=== PATIENT | female | born 1970 | race African-American/Black ===

== ENCOUNTER 2020-10-18 05:42 | Day surgery (SDC) | payer OTHER, SELFPAY ==
[~2020-10-18] VITALS: Ht 165.1 cm; Wt 56.7 kg
[2020-10-18] MEDS ORDERED: diphenhydrAMINE 50 MG/ML VIAL ONE (07:37)
[2020-10-18] MEDS ORDERED: fentaNYL citrate 0.05 MG/ML VIAL ONE (07:37)
[2020-10-18] MEDS ORDERED: MIDAZOLAM 5 MG/5 ML VIAL ONE (07:38)
[2020-10-18] MEDS: LIDOCAINE 2% 100 MG/5 ML UJET TP ONE ×2 (07:38→07:46)
[2020-10-18] MEDS ORDERED: fentaNYL citrate 0.05 MG/ML VIAL IVP ONE (14:10)
[2020-10-18] MEDS ORDERED: MIDAZOLAM 2 MG/2 ML VIAL IVP ONE (14:10)
[2020-10-18] MEDS ORDERED: diphenhydrAMINE 50 MG/ML VIAL IVP ONE (14:20)
== END 2020-10-18 08:40 | disposition home or self-care (01) ==
LOC: MDS 05:42 → MMU 06:21 → MDS 08:40
PROVIDERS: ATTEND Internal Medicine Gastroenterology
DX: K62.5 Hemorrhage of anus and rectum (principal); K63.5 Polyp of colon; K57.30 Diverticulosis of large intestine without perforation or abscess without bleeding; Z80.0 Family history of malignant neoplasm of digestive organs; K59.00 Constipation, unspecified; M79.7 Fibromyalgia; F41.9 Anxiety disorder, unspecified; Z90.710 Acquired absence of both cervix and uterus; I10 Essential (primary) hypertension; Z79.899 Other long term (current) drug therapy
CPT/HCPCS: 45385; 87426; 88305; J1200; J2250; J3010